=== PATIENT | male | born 1990 | race Caucasian/White ===

== ENCOUNTER 2019-05-09 07:53 | Day surgery (SDC) | payer BC ==
[2019-05-09] MEDS: SOD CHLORIDE 0.9% 1,000 ML IV (09:46)
[2019-05-09] MEDS ORDERED: ROCURONIUM 50 MG INJ (10:56)
[2019-05-09] MEDS ORDERED: SUCCINYLCHOLINE CHLORIDE 100 MG/5 ML SYG IV (10:56)
[2019-05-09] MEDS ORDERED: LIDOCAINE 2% (SDV) 5 ML INJ (10:56)
[2019-05-09] MEDS ORDERED: GLYCOPYRROLATE 0.4 MG INJ ×2 (10:56→11:40)
[2019-05-09] MEDS ORDERED: NEOSTIGMINE 3 MG/3 ML SYRINGE ×2 (10:56→11:40)
[2019-05-09] MEDS ORDERED: PROPOFOL 20 ML (10:56)
[2019-05-09] MEDS ORDERED: MEPERIDINE 100 MG INJ (10:57)
[2019-05-09] MEDS: CEFAZOLIN 2 GM/50 ML (PMX) 50 ML IVPB (11:15)
[2019-05-09] MEDS ORDERED: DIPHENHYDRAMINE 50 MG INJ IV (11:30)
[2019-05-09] MEDS ORDERED: OXYCODONE/ACETAMINOPHEN (5/325) TAB PO ×2 (11:30)
[2019-05-09] MEDS ORDERED: FENTAnyl 50 MCG/ML VIAL IV ×3 (11:30)
[2019-05-09] MEDS ORDERED: METOCLOPRAMIDE 10 MG INJ IV (11:30)
[2019-05-09] MEDS ORDERED: MIDAZOLAM 1 MG/ML 2 ML INJ IV (11:30)
[2019-05-09] MEDS ORDERED: HYDROmorphONE 1 MG/5 ML IV SYRINGE IV ×2 (11:30)
[2019-05-09] MEDS ORDERED: CEFAZOLIN 1 GM INJ (11:40)
[2019-05-09] MEDS ORDERED: ONDANSETRON 4 MG INJ (11:53)
[2019-05-09] MEDS: BUPIVACAINE 0.25% (MPF) 30 ML INJ (12:00)
[2019-05-09] MEDS: MEPERIDINE 25 MG INJ IV (12:19)
[2019-05-09] MEDS: HYDROCODONE/APAP (5/325) TAB PO (12:19)
[2019-05-09] MEDS: HYDROmorphONE 1 MG/5 ML IV SYRINGE IV (12:19)
[2019-05-09] MEDS: ONDANSETRON 4 MG INJ IV (12:19)
== END 2019-05-09 14:20 | disposition home or self-care (01) ==
LOC: SDS 07:53
DX: K80.10 Calculus of gallbladder with chronic cholecystitis without obstruction (principal); K21.9 Gastro-esophageal reflux disease without esophagitis
CPT/HCPCS: 47562; 88304